=== PATIENT | female | born 1975 | race Caucasian/White ===

== ENCOUNTER 2017-02-06 13:41 | Day surgery (SDC) | payer BC ==
[2017-02-04 09:47] LABS: BASOPHILS 0.2 %; BASOPHILS ABSOLUTE 0.01 10/3/uL (0.0-0.16); EOSINOPHILS 2.4 %; EOSINOPHILS ABSOLUTE 0.15 10/3/uL (0.0-0.53); HEMOGLOBIN 11.8 g/dL (12.0-16.0); IMMATURE GRANULOCYTES 0.2 %; IMMATURE GRANULOCYTES ABSOLUTE 0.01 10/3/uL (0.0-0.11); LYMPHOCYTES ABSOLUTE 1.36 10/3/uL (0.67-4.30); MEAN CORPUS HGB CONC 33.4 g/dL (32.0-36.0); MEAN CORPUSCULAR HEMOGLOB 29.1 pg (26.0-34.0); MEAN CORPUSCULAR VOLUME 86.9 fL (80-100); MEAN PLATELET VOLUME 9.8 fL (9.2-13.0); MONOCYTES 9.7 %; NEUTROPHILS 65.5 %; NEUTROPHILS ABSOLUTE 4.04 10/3/uL (2.02-8.40); PLATELET COUNT 242 10/3/uL (150-400); RBC DISTRIBUTION WIDTH 13.1 % (12.0-16.0); RED CELL COUNT 4.06 10/6/uL (4.0-5.6)
[2017-02-04 09:50] LABS: HEMATOCRIT 35.3 % (36.0-48.0); MANUAL DIFF NO %; WHITE BLOOD CELLS 6.2 10/3/uL (4.5-10.5)
[2017-02-04 10:01] LABS: BUN (BLOOD UREA NITROGEN) 17 MG/DL (6-23); CALCIUM, SERUM 9.2 MG/DL (8.5-10.4); CHLORIDE, SERUM 108 MMOL/L (96-112); CO2 (CARBON DIOXIDE) 25 MMOL/L (24-34); CREATININE 0.42 MG/DL (0.55-1.02); GFR AFRICAN AMERICAN 145 ML/MIN (>=60); GFR NON AFRICAN AMERICAN 126 ML/MIN (>=60); GLUCOSE, SERUM 85 MG/DL (60-99); POTASSIUM, SERUM 4.1 MMOL/L (3.5-5.3); SODIUM, SERUM 140 MMOL/L (135-148)
--- NOTE | ~2017-02-06 | OP ---
Record Of Operation [facility] [address] [place]. [address] NAME: KWESI REESE : 71 STATUS : [facility]#: [id number] AGE: 41 ADM/REG DATE : 02/06/17 MR#: [id number] REPORT SERV DATE: 02/06/17 DICTATED BY: AIRAM TRUONG DATE: 02/06/17 REPORT STATUS : Draft TRANSCRIBED BY: MODL DATE: 02/06/17 DATE OF PROCEDURE: 02/06/2017 PREOPERATIVE DIAGNOSIS: Neurogenic bladder with chronic Juarez. POSTOPERATIVE DIAGNOSES: Neurogenic bladder with chronic Juarez plus multiple bladder stones. PROCEDURE PERFORMED: 1. Cystoscopy with removal of multiple bladder stones. 2. Trocar suprapubic tube placement. SURGEON: Airam Truong M.D. ANESTHESIA: General. ESTIMATED BLOOD LOSS: 5 mL. INDICATIONS: This is a 41-year-old white female with paraplegia from a C7 spinal cord injury who has a neurogenic bladder managed with a chronic indwelling Juarez. She has expressed a strong desire to try a suprapubic catheter drainage. She does have a history of urinary tract infections and occasional bladder stones. We are planning cystoscopy with trocar suprapubic tube placement. Risks of infection, bleeding, incontinence etc., were reviewed. PROCEDURE IN DETAIL: The patient was taken to the operating room and underwent a general anesthetic. She was placed in the lithotomy position on the table, and her external genitalia were sterilely prepped and draped. The 22-Italian cystoscope sheath with 30-degree lens was inserted under direct vision per urethra with the aid of the video monitor. The bladder was thoroughly inspected. There were 4 round flat stones lying on the bladder floor. Otherwise, the bladder mucosa looked reasonably normal. The single orifices were seen bilaterally. There were no mass lesions in the bladder. I was able to grasp the stones with grasping forceps and removed them per urethra. The urethra itself was somewhat large caliber. Once the stones had been removed, the bladder was distended with some difficulty as she had leakage per urethra. I was able to visualize the dome area of the bladder very easily. I chose an area a couple of fingerbreadths above the pubic symphysis in the midline and used a spinal needle to find the appropriate angle into the bladder. Once this had been established, a short transverse skin incision was made with an 11 blade knife, and we used the 16-Italian Christy catheter introducer, inserted through the skin incision and entered the bladder high up on the posterior wall. The trocar was pulled out of the introducer and a 16-Italian catheter was inserted through the access sheath and the balloon was inflated. The peel-away sheath was removed leaving the suprapubic tube in place. It was then sutured to the skin using a 2-0 silk suture. There was mild bleeding. Following this, the endoscopic apparatus was removed from the bladder. An 18-Italian urethral Juarez catheter was also inserted to gravity drainage. A sterile dressing was applied over the suprapubic site. The patient was then taken to recovery in stable condition. The bladder stones were sent for analysis. Record Of Operation [address] [place]. [address] NAME: KWESI REESE : 71 STATUS : [facility] PAT#: [id number] AGE: 41 ADM/REG DATE : 02/06/17 MR#: [id number] REPORT SERV DATE: 02/06/17 DICTATED BY: AIRAM TRUONG DATE: 02/06/17 REPORT STATUS : Draft TRANSCRIBED BY: KANDICE DATE: 02/06/17 WENDIE/KANDICE Airam Truong M.D. / [id number] CC: Kirby Flowers M.D.
[~2017-02-06 13:41] MED LIST: BACLOFEN20 MG PO; DITROPAN XL10 MG PO; IRON PO; MACRO50B PO; OS500+D PO; V5 PO
[2017-02-12 01:16] LABS: STONE COMPOSITION TWO DNR (())
== END 2017-02-06 19:27 | disposition home or self-care (01) ==
LOC: SDC 13:41
PROVIDERS: Urology
PROC: 0TCB8ZZ Extirpation of Matter from Bladder, Via Natural or Artificial Opening Endoscopic (ICD-10-PCS; principal; 2017-02-06 15:00)
DX: N31.9 Neuromuscular dysfunction of bladder, unspecified (principal); N21.0 Calculus in bladder; Z88.1 Allergy status to other antibiotic agents; K22.70 Barrett's esophagus without dysplasia
CPT/HCPCS: 80048; 82365; 85025; J2250; J2405; J3010